=== PATIENT | male | born 1955 | race Caucasian/White ===

== ENCOUNTER → 2016-08-04 | Outpatient (CLI) | payer BC ==
[~2016-08-04] MED LIST: B-12500 MC1 SL; CEFDINIR300 MG PO; CIPRO500 MG PO; DAILY MULTIPLE1 EACH PO; FISH OIL 1,0001 EAC7 PO; FLAXSEED OIL1000 M4 PO; FLOMAX0.4 MG PO; LO-DOSE ASPIRIN81 M1 PO; MOTRIN800 MG PO; OMEGA-3 FLAXS1000 MG PO; PHENERGAN25 MG PR; PRAVASTATIN SOD20 MG PO; PROMETHAZINE HC25 M1 PO; VITAMIN B-12500 MC2 PO; VITAMIN C500 M1 PO; VITAMIN D-32000 UNI1 PO; VITAMIN D32000 UNI1 PO
== END | disposition home or self-care (01) ==
LOC: CDC 09:40
DX: Z01.810 Encounter for preprocedural cardiovascular examination (principal)
CPT/HCPCS: 93000

== ENCOUNTER 2017-10-10 11:08 | Observation (INO) | payer BC ==
[~2017-10-10] VITALS: Ht 172.7 cm; Wt 88.8 kg
[2017-10-10 12:02] LABS: ALBUMIN 4.6 g/dL (3.2-4.8); CHLORIDE 100 mEq/L (99-109); POTASSIUM 3.6 mEq/L (3.7-5.4); SODIUM 136 mEq/L (136-147)
[2017-10-10 12:03] LABS: APPEARANCE CLEAR ((CLEAR)); BILIRUBIN NEGATIVE; BLOOD SMALL; COLOR YELLOW ((YELLOW)); GLUCOSE (STRIP) NEGATIVE; KETONES 20; LEUKOCYTES NEGATIVE; NITRITE NEGATIVE; PROTEIN (STRIP) 30; SPECIFIC GRAVITY 1.017 (1.000-1.030); UROBILINOGEN 0.2 MG/DL (0.2-1.0)
[2017-10-10 12:05] LABS: GLUCOSE 121 mg/dL (70-99); TOTAL PROTEIN 7.8 g/dL (6.4-8.3)
[2017-10-10 12:07] LABS: TOTAL BILIRUBIN 1.8 mg/dL (0.0-1.0)
[2017-10-10 12:08] LABS: ALKALINE PHOSPHATASE 67 IU/L (3-129); CREATININE 0.9 mg/dL (0.6-1.3); GFR ESTIMATE (CALCULATED) > 59 mL/min/ (58.99-99999)
[2017-10-10 12:09] LABS: BACTERIA RARE /HPF; EPITHELIAL CELLS NONE SEEN /HPF; MUCUS TRACE /LPF; UCUL ADDED? NO; WHITE BLOOD CELLS 0-5 /HPF (0-5)
[2017-10-10 12:09] LABS: UREA NITROGEN (BUN) 14 mg/dL (9-23)
[2017-10-10 12:10] LABS: AST (GOT) 42 IU/L (2-34)
[2017-10-10 12:11] LABS: ALT (GPT) 27 IU/L (3-49)
[2017-10-10 12:18] LABS: HEMATOCRIT 50.4 % (38.0-50.0); HEMOGLOBIN 18.3 G/DL (12.5-16.6); MCH 32.7 PG (29.0-34.0); MCHC 36.3 G/DL (30.0-36.0); MCV 90.2 FL (86-99); PLATELET COUNT 223 K/uL (156-360); RBC DIS.WIDTH-CV 11.4 % (11.8-14.6); RBC DIS.WIDTH-SD 38.2 % (39-53); RED BLOOD COUNT 5.59 M/uL (4.00-5.50); WHITE BLOOD COUNT 14.1 K/uL (4.1-10.2)
[2017-10-10] MEDS ORDERED: POTASSIUM CITRA5 MEQ PO (15:07)
[2017-10-10] MEDS ORDERED: ADVIL,NUPRIN,M200 MG PO (15:08)
[2017-10-10 16:49] LABS: HEMATOCRIT 45.1 % (38.0-50.0); HEMOGLOBIN 16.7 G/DL (12.5-16.6); MCH 34.1 PG (29.0-34.0); PLATELET COUNT 211 K/uL (156-360); RBC DIS.WIDTH-CV 11.6 % (11.8-14.6); RBC DIS.WIDTH-SD 39.4 % (39-53); WHITE BLOOD COUNT 12.9 K/uL (4.1-10.2)
[2017-10-10 17:19] VITALS: BP 141/88
[2017-10-10 20:28] VITALS: BP 134/81
[2017-10-11] VITALS: BP 127/74
[2017-10-11 06:01] LABS: ALBUMIN 3.5 G/DL (3.2-4.8); ALKALINE PHOSPHATASE 53 IU/L (3-129); ALT (GPT) 19 IU/L (3-49); AST (GOT) 26 IU/L (2-34); CHLORIDE 108 MEQ/L (99-109); GFR ESTIMATE (CALCULATED) > 59 mL/min/ (58.99-99999); SODIUM 140 MEQ/L (136-147); TOTAL BILIRUBIN 1.4 MG/DL (0.0-1.0); TOTAL PROTEIN 5.4 G/DL (6.4-8.3); UREA NITROGEN (BUN) 14 mg/dL (9-23)
[2017-10-11 06:03] LABS: GLUCOSE 90 mg/dL (70-99); POTASSIUM 4.4 MEQ/L (3.7-5.4)
[2017-10-11 07:40] VITALS: BP 130/78
[2017-10-11 11:18] LABS: BASOPHIL (%) 0.5 % (0-1); BASOPHIL COUNT 0.1 K/uL (0-0.1); EOSINOPHIL (%) 1.8 % (0-5); EOSINOPHIL COUNT 0.2 K/uL (0-0.3); HEMATOCRIT 44.2 % (38.0-50.0); HEMOGLOBIN 15.7 G/DL (12.5-16.6); IMMATURE GRANULOCYTE (%) 0.4 % (0.0-0.7); LYMPHOCYTE (%) 19.7 % (15-42); LYMPHOCYTE COUNT 1.9 K/uL (1.0-2.8); MCH 33.8 PG (29.0-34.0); MCHC 35.5 G/DL (30.0-36.0); MCV 95.3 FL (86-99); MONOCYTE (%) 7.2 % (3-12); MONOCYTE COUNT 0.7 K/uL (0-0.8); NEUTROPHIL (%) 70.4 % (45-76); NEUTROPHIL COUNT 6.7 K/uL (1.8-6.4); PLATELET COUNT 184 K/uL (156-360); RBC DIS.WIDTH-SD 41.4 % (39-53); RED BLOOD COUNT 4.64 M/uL (4.00-5.50); WHITE BLOOD COUNT 9.5 K/uL (4.1-10.2)
[2017-10-11 12:54] LABS: CHLORIDE 106 MEQ/L (99-109); CREATININE 0.8 MG/DL (0.6-1.3); GFR ESTIMATE (CALCULATED) > 59 mL/min/ (58.99-99999); GLUCOSE 96 mg/dL (70-99); POTASSIUM 4.2 MEQ/L (3.7-5.4); SODIUM 137 MEQ/L (136-147); UREA NITROGEN (BUN) 13 mg/dL (9-23)
== END 2017-10-11 13:17 | disposition home or self-care (01) ==
LOC: EME 11:08 → EDOF 15:46 → 4SOUTH 15:46 → EDOF 15:46 → ENRESERV 15:51 → 4SOUTH 16:59
PROVIDERS: Hospitalist; Nurse Practitioner Family
DX: K29.60 Other gastritis without bleeding (principal); T39.395A Adverse effect of other nonsteroidal anti-inflammatory drugs [NSAID], initial encounter; M54.12 Radiculopathy, cervical region; E78.5 Hyperlipidemia, unspecified; D72.829 Elevated white blood cell count, unspecified; E87.6 Hypokalemia; N20.0 Calculus of kidney; F17.200 Nicotine dependence, unspecified, uncomplicated; Z79.82 Long term (current) use of aspirin; Z88.0 Allergy status to penicillin; Z88.2 Allergy status to sulfonamides; Z88.1 Allergy status to other antibiotic agents; Z91.041 Radiographic dye allergy status; Z91.018 Allergy to other foods; Z66 Do not resuscitate
CPT/HCPCS: 74177; 80048 91; 80053; 81003; 83605; 85025; 85027; 87040; 99281; 99285; C9113; G0378; J1200; J2405; J3010; J7030; S0028